=== PATIENT | male | born 1985 | race Caucasian/White ===

== ENCOUNTER 2020-08-05 17:23 | Emergency (ER) | payer BC ==
[~2020-08-05] VITALS: Ht 182.9 cm; Wt 104.3 kg
[2020-08-05 17:43] VITALS: BP 155/93
--- NOTE | 2020-08-05 17:47 | NUR ---
35 Y/O MALE C/O RIGHT LEG PAIN 11/22 DESCRIBES SHARP AND NON-RADIATING S/P LEG CRAMP X4DAYS. PT WENT TO URGENT CARE AND WAS TOLD TO COME TO ER FOR US TO RULE OUT DVT. PAIN HAS INCREASED AND INCREASED SWELLING NOTED. PT DENIES N/V, DENIES FEVER/CHILLS. DENIES PMH NKA
--- NOTE | 2020-08-05 18:01 | NUR ---
Dr. Jimenez at pt bedside for further evaluation.
--- NOTE | 2020-08-05 18:43 | NUR ---
US tech at pt bedside.
--- NOTE | 2020-08-05 19:17 | NUR ---
Gave report to ESTEFANY Hyman, transfer of care at this time.
--- NOTE | 2020-08-05 19:19 | NUR ---
RECEIVED REPORT FROM ESTEFANY JACOBO FOR CONTINUITY OF CARE
[2020-08-05] MEDS ORDERED: METH750T5 PO (19:46)
[2020-08-05] MEDS ORDERED: IBUP-2213 PO (19:46)
--- NOTE | 2020-08-05 20:20 | NUR ---
PT LEFT WITHOUT DISCHARGE PAPERS
[2020-08-05 20:40] VITALS: BP 155/93
== END 2020-08-05 20:40 | disposition home or self-care (01) ==
LOC: MED 17:23
DX: M79.604 Pain in right leg (principal); X58.XXXA Exposure to other specified factors, initial encounter; Y93.89 Activity, other specified; Y92.89 Other specified places as the place of occurrence of the external cause; Y99.8 Other external cause status
CPT/HCPCS: 93971; 99284